=== PATIENT | female | born 1995 | race Caucasian/White ===

== ENCOUNTER 2018-11-20 01:35 | Outpatient (CLI) | payer MEDICAID ==
[~2018-11-20] VITALS: Ht 139.7 cm; Wt 56.5 kg
[~2018-11-20 01:35] MED LIST: ACET-2047 PO
[2018-11-20 02:15] VITALS: Ht 139.7 cm; Wt 56.5 kg
[2018-11-20 02:16] VITALS: BP 102/61; PULSE 62; RESP 17
== END 2018-11-20 04:26 | disposition home or self-care (01) ==
LOC: L-D 01:35 → OBT 01:35
PROVIDERS: ATTEND Obstetrics & Gynecology
DX: O62.9 Abnormality of forces of labor, unspecified (principal); Z3A.35 35 weeks gestation of pregnancy
CPT/HCPCS: 76818; 81001; Z7500; G0463

== ENCOUNTER 2018-12-11 07:45 | Inpatient (IN) | payer MEDICAID ==
[~2018-12-11] VITALS: Ht 149.9 cm; Wt 57.0 kg
[~2018-12-11 07:45] MED LIST changes: -ACET-2047 PO; +PNV11TAB PO
[2018-12-11 08:19] VITALS: BP 118/65; PULSE 69; Ht 149.9 cm; Wt 57.0 kg
[2018-12-11] MEDS ORDERED: LACTATED RINGER'S 1,000 ML IV SCH (08:20)
[2018-12-11] MEDS ORDERED: LIDOCAINE 1% (MPF) 30 ML INJ INJ PRN (08:30)
[2018-12-11] MEDS ORDERED: AMPICILLIN 2 GM/NS (PMX) 100 ML IV ONE (08:30)
[2018-12-11] MEDS ORDERED: OXYTOCIN 30 UNITS/LR 500 ML IV PRN ×2 (08:30→11:00)
[2018-12-11] MEDS ORDERED: BUTORPHANOL 2 MG INJ IV PRN ×2 (08:30)
[2018-12-11] MEDS ORDERED: METHYLERGONOVINE 0.2 MG INJ IM PRN ×2 (08:30→11:00)
[2018-12-11] MEDS ORDERED: OXYTOCIN 30 UNITS/LR 500 ML IV SCH ×3 (08:30→10:50)
[2018-12-11] MEDS ORDERED: MISOPROSTOL 200 MCG TAB PR PRN ×2 (08:30→11:00)
[2018-12-11] MEDS ORDERED: CARBOPROST 250 MCG INJ IM PRN ×2 (08:30→11:00)
[2018-12-11] MEDS ORDERED: IBUPROFEN 800 MG TAB PO ONE (10:30)
[2018-12-11] MEDS ORDERED: DIBUCAINE 1% 30 GM OINT TOP PRN (11:00)
[2018-12-11] MEDS ORDERED: ACETAMINOPHEN 325 MG TAB PO PRN (11:00)
[2018-12-11] MEDS ORDERED: BENZOCAINE 20% 56 ML SPRAY TOP PRN (11:00)
[2018-12-11] MEDS ORDERED: MAGNESIUM HYDROXIDE 30ML CUP PO PRN (11:00)
[2018-12-11] MEDS ORDERED: LANOLIN HPA 1 PKT TOP PRN (11:00)
[2018-12-11] MEDS ORDERED: WITCH HAZEL/GLYCERIN PAD PR PRN (11:00)
[2018-12-11] MEDS ORDERED: ONDANSETRON 4 MG INJ IV PRN (11:00)
[2018-12-11 11:15] VITALS: BP 105/64; PULSE 69; RESP 18
[2018-12-11] MEDS ORDERED: AMPICILLIN 1 GM/NS (PMX) 50 ML IV SCH (12:30)
[2018-12-11 16:05] VITALS: BP 93/51; PULSE 66; RESP 16
[2018-12-11] MEDS: IBUPROFEN 600 MG TAB PO PRN (18:48)
[2018-12-11 20:00] VITALS: BP 125/67; PULSE 70; RESP 18
[2018-12-11] MEDS: LACTATED RINGER'S 1,000 ML IV* SCH ×2 (20:19→20:24)
[2018-12-12 00:40] VITALS: BP 95/53; PULSE 63; RESP 18
[2018-12-12] MEDS: IBUPROFEN 600 MG TAB PO PRN (02:22)
[2018-12-12] MEDS: LACTATED RINGER'S 1,000 ML IV* SCH ×2 (02:50→18:50)
[2018-12-12 04:00] VITALS: BP 100/58; PULSE 55
[2018-12-12 08:00] VITALS: BP 93/53; PULSE 67; RESP 16
[2018-12-12] MEDS: ACETAMINOPHEN 325 MG TAB PO PRN ×2 (09:30→20:44)
[2018-12-12 15:40] VITALS: BP 98/61; PULSE 68; RESP 16
[2018-12-12 20:00] VITALS: BP 101/58; PULSE 62; RESP 18
[2018-12-12] MEDS: SENNA/DOCUSATE NA (8.6MG/50MG) TAB PO PRN (20:44)
[2018-12-13] MEDS: LACTATED RINGER'S 1,000 ML IV* SCH ×4 (02:50→11:43)
[2018-12-13 04:05] VITALS: BP 91/54; PULSE 61; RESP 18
[2018-12-13] MEDS: IBUPROFEN 600 MG TAB PO PRN (05:45)
[2018-12-13 08:00] VITALS: BP 100/74; PULSE 56; RESP 16
[2018-12-13] MEDS: SENNA/DOCUSATE NA (8.6MG/50MG) TAB PO PRN (08:00)
[2018-12-13] MEDS: ACETAMINOPHEN 325 MG TAB PO PRN (08:00)
== END 2018-12-13 13:40 | disposition home or self-care (01) | DRG 807 ==
LOC: OBT 07:45 → L-D 07:45 → UNDOADMIN 08:09 → L-D 08:09 → OBT 08:11 → L-D 08:20 → PP1 11:15
PROVIDERS: ADMIT Obstetrics & Gynecology; ATTEND Obstetrics & Gynecology
PROC: 10E0XZZ Delivery of Products of Conception, External Approach (ICD-10-PCS; principal; 2018-12-11)
PROC: 0HQ9XZZ Repair Perineum Skin, External Approach (ICD-10-PCS; 2018-12-11)
PROC: 10907ZC Drainage of Amniotic Fluid, Therapeutic from Products of Conception, Via Natural or Artificial Opening (ICD-10-PCS; 2018-12-11)
DX: O70.0 First degree perineal laceration during delivery (principal); Z37.0 Single live birth; Z3A.38 38 weeks gestation of pregnancy
CPT/HCPCS: 85025; 85610; 85730; 86592; 86850; 86900; 86901; 87340; G0463; J0290; J2590; J7120